=== PATIENT | male | born 1965 | race Caucasian/White ===

== ENCOUNTER 2018-10-24 17:01 | Emergency (ER) | payer OTHER, SELFPAY ==
[2018-10-24] VITALS (10 sets, daily range): BP systolic 136–157; BP diastolic 80–97; PULSE 110–126; RESP 12–18; TEMP 36.7; O2SAT 91–95
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
[2018-10-24 17:17] LABS: Add Manual Diff / Slide Review NO; Basophils Absolute Auto 100 /uL (0-100); Basophils Percent Auto 0.9 % (0-2); Eosinophils Absolute Auto 300 /uL (0-450); Eosinophils Percent Auto 2.4 % (2-4); Hematocrit 46.9 % (41-53); Hemoglobin 16.2 g/dL (13.5-17.5); Lymphocytes Absolute Auto 4700 /uL (1100-4500); Lymphocytes Percent Auto 43.2 % (25-40); Mean Corpuscular HGB Conc 34.6 % (30-36); Mean Corpuscular Hemoglobin 33.7 PG (26-34); Mean Corpuscular Volume 97.4 fL (80-100); Monocytes Absolute Auto 800 /uL (0-900); Monocytes Percent Auto 7.5 % (3-14); Neutrophils Absolute Auto 5000 /uL (1500-7000); Platelet Count 279 X10^3/uL (150-400); Red Blood Cell Count 4.81 X10^6/uL (4.5-5.9); Red Cell Distribution Width 12.7 % (11.6-14.8)
--- NOTE | 2018-10-24 17:29 | PC.NURSE ---
[employer] watch given to moris to use.
[2018-10-24 17:34] LABS: Alanine Aminotransferase 21 IU/L (21-72); Albumin 4.7 g/dL (3.5-5.0); Albumin Globulin Ratio 1.5 (1.0-2.8); Alkaline Phosphatase 76 U/L (38-126); Aspartate Aminotransferase 33 IU/L (17-59); BUN Creatinine Ratio 17.1 (6-22); Bilirubin Total 0.9 mg/dL (0.2-1.3); Blood Urea Nitrogen 12 mg/dL (9-20); Calcium 9.3 mg/dL (8.4-10.2); Carbon Dioxide 19 mmol/L (22-32); Chloride 104 mmol/L (98-107); Estimated Glomerular Filt Rate > 60.0 mL/min (>60); Ethanol (ETOH) 200 mg/dL; Globulin 3.1 g/dL (1.7-4.1); Glucose 102 mg/dL (70-100); Lipase 122 U/L (23-300); Potassium 3.9 mmol/L (3.4-5.1); Sodium 140 mmol/L (137-145); Total Protein 7.8 g/dL (6.3-8.2)
[2018-10-24] MEDS: SODIUM CHLORIDE 0.9% 1,000 ML 1000 ML IV (17:41)
[2018-10-24] MEDS: TET,DIPH,PERTUSS(ACELL),VAC/PF 0.5 ML SYRINGE IM (17:43)
[2018-10-24 17:44] LABS: HEMOLYSIS 58 (0-50)
[2018-10-24 18:46] LABS: Bacteria Urine None Seen; WBC Urine None Seen (0-5/HPF)
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
[2018-10-24 19:02] LABS: RBC Urine 0-1/HPF (0-5/HPF)
== END 2018-10-24 19:14 | disposition home or self-care (01) ==
PROVIDERS: Emergency Provider Emergency Medicine
DX: S09.90XA Unspecified injury of head, initial encounter (principal); V28.4XXA Motorcycle driver injured in noncollision transport accident in traffic accident, initial encounter
CPT/HCPCS: 36591; 70450; 70486; 71045; 71260; 72125; 74177; 80053; 80320; 81003; 81015; 83690; 85025; 90471; 93005; 96360; 99285; 90715

== ENCOUNTER 2019-04-07 14:19 | Emergency (ER) | payer OTHER, MEDICAID, SELFPAY ==
--- NOTE | 2019-04-07 14:25 | DI.RAD.S_ITS ---
PROCEDURE: XR TOE LT MIN 2V INDICATIONS: dropped a tool box on his left great toe TECHNIQUE: 3 views of the left great toe were obtained. COMPARISON: None. FINDINGS: Bones: A mildly comminuted, but nondisplaced, fracture is evident involving the tuft of the distal phalanx of the great toe. No definite extension into the interphalangeal joint is evident. There is no dislocation. No suspicious osseous lesions are identified. There mild degenerative changes of the 1st metatarsophalangeal joint without associated hallux valgus. A bipartite medial sesamoid is incidentally noted. Soft tissues: No suspicious soft tissue densities. IMPRESSION: Nondisplaced comminuted distal phalangeal fracture of the great toe. Dictated by: Carrillo Garcia M.D. on 04/07/2019 at 13:52 Approved by: Carrillo Garcia M.D. on 04/07/2019 at 13:53
[2019-04-07 14:27] VITALS: BP 144/91; PULSE 93; RESP 19; TEMP 36.7; O2SAT 99; BMI 25.0
--- NOTE | 2019-04-07 15:24 | ED_ITS ---
HPI - Extremity Injury (Lower) <EUSEBIO Patricio - Last Filed: 04/07/19 22:23> General Chief Complaint: Extremity Injury, Lower Stated Complaint: dropped toolbox on left foot last night Time Seen by Provider: 04/07/19 15:01 Source: patient Mode of arrival: ambulatory Limitations: no limitations History of Present Illness HPI Narrative: 53-year-old male with a history of multiple surgeries on his left foot, presents emergency department complaining of left 1st toe pain after dropping a 50 lb tool box on his toe. Patient states the pain is a 10/10 sharp stabbing that is worse with movement better with rest. Patient also reports a small laceration on top his toe that has been oozing occasionally. He denies any fevers, chills, chest pain, shortness of breath, ankle pain, foot pain, knee pain, or other injuries. Related Data Previous Rx's Medication Instructions Recorded cephalexin 500 mg PO QID 7 Days #28 cap 04/07/19 hydrocodone-acetaminophen [[place]] 1 tab PO Q6H #10 tab 04/07/19 Allergies Allergy/AdvReac Type Severity Reaction Status Date / Time tetracycline AdvReac Unknown Verified 04/07/19 14:35 Review of Systems <EUSEBIO Patricio - Last Filed: 04/07/19 22:23> Review of Systems Narrative: REVIEW OF SYSTEMS: GENERAL: Denies fever or chills. HENT: No head trauma. EYES: No double vision or vision loss. CARDIOVASCULAR: No chest pain or syncope. RESPIRATORY: No shortness of breath or cough. GASTROINTESTINAL: No nausea, vomiting, diarrhea, or constipation. GENITOURINARY: No flank pain or dysuria. MUSCULOSKELETAL: Complains of left 1st toe pain, see HPI. INTEGUMENTARY: No rash, lesions, or pruritus. NEURO: No numbness, tingling. PSYCH: No behavior or mood changes. PFSH <EUSEBIO Patricio - Last Filed: 04/07/19 22:23> Medical History Tachycardia (Acute) Social History (Updated 10/24/18 @ 19:03 by Magalie Roberts DO) Smoking Status: Current every day smoker alcohol intake: current substance use type: does not use Social History Smoking Status: Current every day smoker alcohol intake: current substance use type: does not use Exam <EUSEBIO Patricio - Last Filed: 04/07/19 22:23> Initial Vital Signs Initial Vital Signs: Vital Signs Temperature 98.1 F 04/07/19 14:27 Pulse Rate 93 H 04/07/19 14:27 Respiratory Rate 04/07/19 14:27 Blood Pressure 144/91 H 04/07/19 14:27 Pulse Oximetry 99 04/07/19 14:27 PHYSICAL EXAMINATION: GENERAL: Well groomed, alert, and cooperative. Answers questions promptly and appropriately. Vital signs noted. HENT: Normocephalic, atraumatic. EYES: Symmetrical, sclera white, no periorbital swelling. CARDIOVASCULAR: S1 and S2 sounds normal. Regular rate and rhythm, no murmurs, clicks, or bruits. No pedal edema. RESPIRATORY: Normal respiratory rate, trachea midline, airway patent. No stridor, nasal flaring or accessory muscle use. Lungs are clear in all [place]. MUSCULOSKELETAL: Significant swelling, and ecchymosis to the distal aspect of left 1st toe, tenderness to palpation, nail intact. Small 1cm x 1cm superficial laceration that does not require closure, small amount of serosanguineous liquid oozing from area. No erythema or exudate. Limited range of motion of DIP joint due to pain. No tenderness to the foot or ankle. Normal coordination. Equal tone and mass bilaterally. No spinal tenderness or deformities. EXTREMITIES: CMS intact. No pedal edema. SKIN: Warm, dry, soft, appropriate color for ethnicity. No lesions, rashes, or wounds. NEURO: Alert and Oriented X 3. No sensory deficits. PSYCH: Appropriate affect and mood. <Mya Burdick DO - Last Filed: 04/11/19 21:38> Initial Vital Signs Initial Vital Signs: Vital Signs Temperature 98.1 F 04/07/19 14:27 Pulse Rate 93 H 04/07/19 14:27 Respiratory Rate 04/07/19 14:27 Blood Pressure 144/91 H 04/07/19 14:27 Pulse Oximetry 99 04/07/19 14:27 Procedures <EUSEBIO Patricio - Last Filed: 04/07/19 22:23> Nerve Block Nerve Block 1: Time out performed: Yes Local Anesthetic: lidocaine 1% and with bicarb Amount of anesthesia used (mL): 8 Side: left Nerve Blocks: digital Procedure Successful: Yes Patient Tolerated Procedure: Well Complications: none Course <EUSEBIO Patricio - Last Filed: 04/07/19 22:23> Course Course Narrative: A nerve block was performed, abrasion was irrigated with 200 mL of normal saline. Bandage in Neosporin was placed on the wound, and patient was given an orthopedic shoe. Patient was then discharged with pain medication and p.o. antibiotics as he technically sustained an open fracture. Orders Ordered: Discontinued Medications Hydrocodone Bitart/Acetaminophen ([place] 5/325) 1 tab PO NOW ONE Stop: 04/07/19 15:23 Last Admin: 04/07/19 15:36 Dose: 1 tab Documented by: NERIS Bacitracin (Bacitracin) 1 applic TOP NOW ONE Stop: 04/07/19 15:27 Lidocaine/Sodium Bicarbonate (Buffered Lidocaine 10 Ml Syr) 10 ml INJ NOW ONE Stop: 04/07/19 15:23 Last Admin: 04/07/19 15:37 Dose: 10 ml Documented by: NERIS Sodium Chloride (Normal Saline Irrigation) 250 ml IRR NOW ONE Stop: 04/07/19 15:23 Consultations Consultation #1: Patient staffed with Dr. Burdick. Vital Signs Vital signs: Vital Signs - 8 hr 04/07/19 14:27 04/07/19 16:24 Temperature 98.1 F Pulse Rate 93 H 80 Respiratory Rate 19 15 Blood Pressure 144/91 H 154/93 H Pulse Oximetry 99 97 <Mya Burdick DO - Last Filed: 04/11/19 21:38> Orders Ordered: Discontinued Medications Hydrocodone Bitart/Acetaminophen ([place] 5/325) 1 tab PO NOW ONE Stop: 04/07/19 15:23 Last Admin: 04/07/19 15:36 Dose: 1 tab Documented by: NERIS Websteritracin (Bacitracin) 1 applic TOP NOW ONE Stop: 04/07/19 15:27 Lidocaine/Sodium Bicarbonate (Buffered Lidocaine 10 Ml Syr) 10 ml INJ NOW ONE Stop: 04/07/19 15:23 Last Admin: 04/07/19 15:37 Dose: 10 ml Documented by: NERIS Sodium Chloride (Normal Saline Irrigation) 250 ml IRR NOW ONE Stop: 04/07/19 15:23 Vital Signs Vital signs: Vital Signs - 8 hr 04/07/19 14:27 04/07/19 16:24 Temperature 98.1 F Pulse Rate 93 H 80 Respiratory Rate 19 15 Blood Pressure 144/91 H 154/93 H Pulse Oximetry 99 97 MDM - Extremity Injury (Lower) <EUSEBIO Patricio - Last Filed: 04/07/19 22:23> Medical Records Attestation: I reviewed the patient's medical records. Lab Data Attestation: I reviewed the patient's lab results. Imaging Data Foot XR: Radiologist's impression: [address] [place] [id number] XRay Report Signed Patient: Francisco Mcnulty EMR#: [id number] : [id number]:[id number] Age/Sex: 53 / MDate of Service: 04/07/19 Loc: ED Accession Number: [id number] Procedure: XR toe LT min 2V Ordering Provider: Mya Burdick D.O. PROCEDURE: XR TOE LT MIN 2V INDICATIONS: dropped a tool box on his left great toe TECHNIQUE: 3 views of the left great toe were obtained. COMPARISON: None. FINDINGS: Bones: A mildly comminuted, but nondisplaced, fracture is evident involving the tuft of the distal phalanx of the great toe. No definite extension into the interphalangeal joint is evident. There is no dislocation. No suspicious osseous lesions are identified. There mild degenerative changes of the 1st metatarsophalangeal joint without associated hallux valgus. A bipartite medial sesamoid is incidentally noted. Soft tissues: No suspicious soft tissue densities. IMPRESSION: Nondisplaced comminuted distal phalangeal fracture of the great toe. Dictated by: Carrillo Garcia M.D. on 04/07/2019 at 13:52 Approved by: Carrillo Garcia M.D. on 04/07/2019 at 13:53 [facility] Narrative Medical decision making narrative: Simple fracture as exhibited by x-ray, due to laceration patient was treated with p.o. antibiotics for infection prophylaxis. Strict return precautions given and follow-up instructions discussed. <Mya C Mank, DO - Last Filed: 04/11/19 21:38> MDM Narrative Medical decision making narrative: Case and plan discussed, images were reviewed. Patient has abrasion but technically open fracture, started on oral antibiotics. Discharge Plan Departure Patient Disposition: Home Clinical Impression: Fracture of toe Qualifiers: Encounter type: initial encounter Toe: great toe Fracture type: open Phalanx: distal Fracture alignment: nondisplaced Laterality: left Qualified Code(s): S92.425B - Nondisplaced fracture of distal phalanx of left great toe, initial encounter for open fracture Discharge Date/Time: 04/07/19 16:25 Instructions: DI for Toe Fracture Activity Restrictions/Additional Instructions: Thank you for entrusting me with your care today. As discussed, your x-ray showed a fracture in your toe, it is nondisplaced. However, because there is a wound I prescribed you antibiotics, please take this as directed. Follow up with your primary care provider in the next week for re-evaluation. I have also prescribed you a pain medication, this can make you drowsy do not drive with this medication. Monitor for signs of infection such as increased redness, increased swelling, pus drainage, fevers, or chills-if this occurs please return emergency department immediately. Prescriptions: New hydrocodone-acetaminophen [[place]] 5-325 mg tablet 1 tab PO Q6H Qty: 10 RF: 0 cephalexin 500 mg capsule 500 mg PO QID 7 Days Qty: 28 RF: 0
[2019-04-07] MEDS: HYDROCODONE/ACET 5/325 TABLET 1 TAB PO (15:36)
[2019-04-07] MEDS: LIDO 1%/SOD BICARB 8.4% (10ML) 10 ML SYRINGE INJ (15:37)
[2019-04-07 16:24] VITALS: BP 154/93; PULSE 80; RESP 15; O2SAT 97
== END 2019-04-07 16:25 | disposition home or self-care (01) ==
PROVIDERS: Emergency Provider Nurse Practitioner
DX: S92.425B Nondisplaced fracture of distal phalanx of left great toe, initial encounter for open fracture (principal)
CPT/HCPCS: 29550; 64450; 73660; 99282; 99283